=== PATIENT | female | born 1990 | race Caucasian/White ===

== ENCOUNTER 2022-09-16 11:27 | Emergency (ER) | payer SELFPAY ==
[~2022-09-16] VITALS: Ht 172.7 cm; Wt 86.2 kg
[2022-09-16 11:54] VITALS: BP_SYST 136
--- NOTE | 2022-09-16 14:00 | NUR ---
PT REMAINS IN LOBBY, STATUS UNCHANGED. ADVISED OF CONT WAIT
--- NOTE | 2022-09-16 15:45 | NUR ---
ER at bedside examining patient.
[2022-09-16] MEDS ORDERED: LIDOCAINE 1% 10 MG/ML, 20 ML MDV INJ ONE (16:30)
--- NOTE | 2022-09-16 16:38 | NUR ---
Patient to [facility] for evaluation. Side rails up.
--- NOTE | 2022-09-16 16:50 | NUR ---
PATIENT REPORTS SHE SLAMMED HER RIGHT THUMB IN CAR DOOR ON SATURDAY AND WAS SEEN BY PCP FOR DRAINAGE OF HEMATOMA. PATIENT THEN SEEN ON SATURDAY AND PRESCRIBED ABX. PATIENT STATES FINGER IS MORE SWOLLEN AND PAINFUL. PAIN 4/10 VSS.
--- NOTE | 2022-09-16 18:22 | NUR ---
AT BEDSIDE FOR PROCEDURE.
[2022-09-16 18:49] VITALS: BP_SYST 122
--- NOTE | 2022-09-16 18:49 | NUR ---
Patient given written and verbal discharge instructions and verbalizes understanding. ER MD discussed with patient the results and treatment provided. Patient in stable condition. ID arm band removed. NO RX given. Patient educated on pain management and to follow up with PMD. Pain Scale 0/10 Opportunity for questions provided and answered.
== END 2022-09-16 18:49 | disposition home or self-care (01) ==
LOC: SED 11:27
DX: S60.111A Contusion of right thumb with damage to nail, initial encounter (principal); Z88.5 Allergy status to narcotic agent; J45.909 Unspecified asthma, uncomplicated; Z79.899 Other long term (current) drug therapy; W23.0XXA Caught, crushed, jammed, or pinched between moving objects, initial encounter; Y93.89 Activity, other specified; Y92.89 Other specified places as the place of occurrence of the external cause; Y99.8 Other external cause status
CPT/HCPCS: 99284; 73140; 81025; 11740; J2001